=== PATIENT | male | born 1985 | race Hispanic/Latino ===

== ENCOUNTER 2017-03-24 12:02 | Inpatient (IN) | payer OTHER ==
[~2017-03-24] VITALS: Ht 185.4 cm; Wt 75.0 kg
[2017-03-24] MEDS ORDERED: FLUC150T PO (12:10)
[2017-03-24 13:06] LABS: MEAN CORPUSCULAR HEMOGLOBIN 29.9 pg (27.0-33.0); MEAN CORPUSCULAR HGB CONC 34.7 g/dl (32.0-36.5); MEAN CORPUSCULAR VOLUME 86.2 fl (80.0-96.0); RED CELL DISTRIBUTION WIDTH 11.9 % (11.5-14.5)
[2017-03-24 14:31] LABS: ALBUMIN 4.1 GM/DL (3.2-5.2); ALBUMIN/GLOBULIN RATIO 1.28 (1.00-1.93); ALKALINE PHOSPHATASE 99 U/L (45-117); ALT/SGPT 23 U/L (12-78); ANION GAP 10 MEQ/L (8-16); AST/SGOT 12 U/L (15-37); BILIRUBIN,DIRECT 0.2 MG/DL (0.0-0.2); BILIRUBIN,TOTAL 0.7 MG/DL (0.2-1.0); BLOOD UREA NITROGEN 11 MG/DL (7-18); CALCIUM LEVEL 9.3 MG/DL (8.5-10.1); CARBON DIOXIDE LEVEL 29 MEQ/L (21-32); CHLORIDE LEVEL 102 MEQ/L (98-107); CREATININE FOR GFR 0.95 MG/DL (0.70-1.30); GLOMERULAR FILTRATION RATE > 60.0 (>60); GLUCOSE, FASTING 86 MG/DL (70-105); POTASSIUM SERUM 4.3 MEQ/L (3.5-5.1); SODIUM LEVEL 141 MEQ/L (136-145); TOTAL PROTEIN 7.3 GM/DL (6.4-8.2)
[2017-03-24 14:55] LABS: METHADONE URINE NEGATIVE (NEGATIVE)
[2017-03-24] MEDS ORDERED: ACETAMINOPHEN TAB 650MG DOSE (2X325MG) PO PRN (15:45)
[2017-03-24] MEDS ORDERED: MAALOX 30 ML SUSP *UDC PO PRN (15:45)
[2017-03-24] MEDS ORDERED: traZODone 50 MG TAB PO PRN (15:45)
[2017-03-24] MEDS ORDERED: MOM 30ML SUSPENSION UDC PO PRN (15:45)
[2017-03-24 16:54] VITALS: BP 124/85
[2017-03-25 06:58] VITALS: BP 112/62
--- NOTE | 2017-03-25 11:24 | HPE ---
DATE OF ADMISSION: 03/24/2017 HISTORY OF THE PRESENT ILLNESS: Please refer to psychiatric history and evaluation for further details on this admission. This examination and history is intended for medical issues history, which may need treatment, follow-up or consult on this 31-year-old male. ALLERGIES: No known allergies. PRIMARY CARE PROVIDER: Leandro Taylor. 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 ETOH rarely. Smokes none. Recreational drug use none. PAST MEDICAL HISTORY: Anxiety. Onychomycosis left toenail, left 5th toe. PAST SURGICAL HISTORY: Hernia repair at age 6. Removal of cyst from back. HOME MEDICATIONS: - fluconazole 300 mg by mouth q. Week. FAMILY HISTORY: Noncontributory. LABORATORY STUDIES: CBC normal. Lytes normal. BUN and creatinine 11 and 0.95. Toxicology screen was negative. REVIEW OF SYSTEMS: 10 systems review was unremarkable other than the fluconazole for the onychomycosis. PHYSICAL EXAMINATION: 31-year-old male cooperative male in no acute distress. Height 73 inches. Weight 75 kg. Body mass index (BMI) 21.8. Blood pressure 124/85. Pulse 74. Respirations 18. Temperature 98.1. Patient is alert and oriented times three. Pupils equal and reactive to light. Extraocular muscles intact. Cornea and sclerae are clear. Conjunctivae are normal. No facial asymmetry. Pharynx, tongue and gums are pink and moist. Tongue is midline. Neck is supple without lymphadenopathy. No thyromegaly. No goiter. Carotids are 2+ without bruit. Chest clear to auscultation without wheeze or retraction. Heart is regular. Abdomen is benign. Bowel sounds are positive. /rectal not done. Extremities show equal strength. Full range of motion. No cyanosis, clubbing or edema. Peripheral pulses equal and palpable bilaterally. Skin is warm and dry. IMPRESSION/PLAN: 1. Psychiatric plan per psychiatry. 2. Continue fluconazole 300 mg by mouth q. week. 3. No acute medial issues.
--- NOTE | 2017-03-25 16:31 | MHHPE ---
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 In the emergency room the patient was really not very forthcoming with information, and he did again admit that he was wishing harm against these coworkers. Today the patient is much more forthcoming. He apparently is being investigated at this point because, according to the patient, he called one of his coworkers a degrading name. He states that he did that because this person had been going into his office and taking his things, in particular a paper. He states that he did not understand, that they are just focusing on a degrading word that he used against this worker , but they are completely ignoring the fact that this person was taking his papers and other things. He states that recently he had started to do some outpatient therapy at [facility] to help him with problems relating to his coworkers. When I asked him if he has problems with that, he stated "There is no middle ground for me." He states "I am either upbeat and everything is okay," or if things are not okay, he states that he gets depressed, and he admits that sometimes he will have some suicidal thoughts, but he states never with any intent of harming himself. The patient also stated "I feel like people are against me when I have no control over a situation." He says this is how he was feeling over the fact that this coworker was stealing his papers, stating "I don't understand why they don't have their own papers." The patient also clarified that he never had any intentions of ever harming anyone or any of the coworkers; however, he stated "I do feel made, and I do wish something bad would happen to them." He stated "Even if it was to his dog, then I would think that they deserved it;" however, he continues to state that he would never harm anybody himself. I asked him some more about the states when he gets depressed, as he noted above , when he says things are not going well for him. I asked him how long would he stay depressed for, and his answer to me was "Well, I don't know because I have never logged that information." The patient does admit that "I work a lot, and I'm fine with it, because I enjoy finding an issue and then working on it." He says he works very long hours, up to 14 hours, and also on weekends. He does not seem that he has much a social life at all, however, or any supportive individuals in his life. I did not elicit any depressive symptomatology, like trouble with sleep or his appetite or any problems with insomnia. Currently the patient is on no medications. Of note, when the patient was seen at the [facility], he was insisting that he wanted to be seen for a very long time, because only then he would have time to explain his situation. The patient is wondering of there is some testing that we can do in the hospital. He states that he had had just a few sessions with a counseling at [facility] when he was going there recently, but apparently the counselor went out on maternity leave, and he wanted to wait until that counselor returned so that he could continue the evaluation that she had started. The offered him another counselor, but he insisted that he wanted to continue with this person who started the evaluation. PAST PSYCHIATRIC HISTORY: The patient does have a history of being admitted to a psychiatric unit twice, once in [facility] and once in [place]. He tells me that he is not sure why he was admitted those times. He states that there was one time where he was thinking about cutting his wrists in 2004. He says that in 2010 there was an episode where he got depressed, and he had suicidal thoughts, but he states that it is not ever with any actual intent, that he has never actually hurt himself before. FAMILY HISTORY: This is negative for any psychiatric illness in the family. PAST MEDICAL HISTORY: There are no acute medical problems. SUBSTANCE ABUSE HISTORY: There is no history of any problems with alcohol or any drugs. ABUSE HISTORY: He denies any history of any physical or sexual abuse in his past. MENTAL STATUS EXAMINATION: This patient is alert and oriented times three. Eye contact is really good. He is verbally spontaneous. There is no formal thought disorder noted. He states that his mood is fine. Today affect is restricted but appropriate to his mood. He is not suicidal. He continues to clarify that he is homicidal, but he does have thoughts of wishing that something bad would happen to his coworkers. I really do not think that this patient is psychotic. Concentration is fair. Memory is intact. Insight and judgment are poor. DIAGNOSIS: Adjustment disorder with depressed mood Rule out obsessive-compulsive personality disorder. TREATMENT PLAN: At this point, we will continue to evaluate the patient for continued denial of homicidal ideations toward his coworkers. I suspect that we might dealing more with obsessive-compulsive personality disorder in this patient. He seems to be very rigid in his way of thinking and his logic. It seems to be that for this patient work is the major focus in his life. He has what appears to be no social life, but he states that he likes it that way. We will continue to evaluate this patient for any indications for medications, but at this point there does not seem to be any. REVIEW OF SYSTEMS: VITAL SIGNS: Blood pressure is 112/62, pulse is 56, respirations are 16. APPEARANCE: The patient appears to be stated age. NEUROMUSCULAR SYSTEM: The patient's gait is normal. There were no involuntary movements noted. All other systems were reviewed and found to be negative. MTDD
[2017-03-25 18:00] VITALS: BP 120/68
[2017-03-26 07:05] VITALS: BP 109/67
[2017-03-26 18:00] VITALS: BP 105/66
--- NOTE | 2017-03-26 19:11 | MHIPN ---
DATE: 03/26/2017 The patient today states that he is doing okay at this point, but he says whenever he starts thinking about the incidents that happened at work with his coworker, he gets angry again and he continues to wish that some harm would come upon those individuals. He continues to clarify, however, that he has no intentions of hurting anybody himself. MENTAL STATUS EXAMINATION: This patient is alert and oriented times three. Eye contact is fair. Psychomotor activity is normal. There is no formal thought disorder noted. He says his mood is okay. His affect is constricted, but appropriate. He is not psychotic, suicidal, or homicidal. Concentration fair. Memory intact. Insight and judgment is fair. DIAGNOSES: Adjustment disorder with depressed mood. Obsessive compulsive personality disorder. Rule out autism spectrum (Asperger's). TREATMENT PLAN: We will continue to monitor the patient to make sure that the patient is not having any homicidal ideations.
[2017-03-27 06:42] VITALS: BP 114/70
[2017-03-27 18:00] VITALS: BP 113/60
--- NOTE | 2017-03-27 19:05 | IPN ---
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 It is described the patient was not forthcoming at the emergency room, but later was more cooperative and information could be gathered. The patient reported being depressed and suicidal intermittently. The patient was talking about "people against me". "I do not have middle ground". The patient was also talking about stress of working long hours. This is his first psychiatric admission and has not psychiatric diagnosis. It is reported in the chart that patient was thinking about cutting his wrist in 2004, but he recovered without treatment. MEDICATIONS: - trazodone 50 mg by mouth at bedtime as needed for insomnia. During the interview today, the patient reports feeling better. The patient denies any feelings of depression, denies suicidal or homicidal ideation. The patient reports being highly distressed because "I lost my job at the ". "They are only seeing and hearing other people but they do not want to listen to my side of the story. The patient was asking to get into an inpatient program where he could find out what is wrong with him and go through extensive psychological testing. We discussed the treatment plan. MENTAL STATUS EXAM: The patient dressed in [facility]. The patient is clean and well-groomed. The patient's eye contact is fair. Speech is monotone. Mood is slightly anxious. Affect is somewhat restricted. There is no evidence of delusions or hallucinations. Memory is fair. Patient is fully oriented. Associations are intact. Thinking is logical. Thought content is appropriate. The patient denies suicidal or homicidal ideation. Insight and judgment is fair. ASSESSMENT: Adjustment disorder with depressed and anxious mood. PLAN: 1. Trazodone 50 mg by mouth at bedtime as needed for insomnia. 2. Continue medication management, individual and group therapy.
[2017-03-28 06:49] VITALS: BP 116/62
--- NOTE | 2017-03-29 15:47 | MHDS ---
DATE OF ADMISSION: 03/24/2017 DATE OF DISCHARGE: 03/28/2017 HISTORY OF PRESENT ILLNESS: The following information is according to the initial evaluation of Dr. Yin, her progress note, and my own progress note. On admission, Dr. 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 He was referred because the patient had stated that he was "wishing harm" against some of his coworkers. In the emergency room, patient was really not very forthcoming with information and he did again admit that he was wishing harm against his coworkers. Today, the patient is much more forthcoming. He apparently is being investigated at this point because, according to the patient, he called one of his coworkers a degrading name. He states that he did that because this person had been going into his office and taking his things, in particular a paper. He states that he did not understand, that they are just focusing on a degrading word that he used against this coworker, but they are completely ignoring the fact that this person was taking his papers and other things. He stated that recently he had started to do some outpatient therapy at [facility] to help him with problems relating to his coworkers. When I asked him if he has problems with that, he stated "there is no middle ground for me." He states "I am either upbeat and everything is okay," or if things are not okay, he stated that he gets depressed and he admits that sometimes he will have some suicidal thoughts, but then he states never with any intent to harm himself. The patient also stated "I feel like people are against me when I have no control over a situation." He says this is how he was feeling over the fact that this coworker was stealing his paper, stating "I don't understand why they don't have their own papers." The patient also clarified that he never had any intentions of ever harming anyone or any of the coworkers. However, he stated "I do feel made and I do wish something bad would happen to them." He stated "even if I was to his dog, then I would think that they deserved it." However, he continues to state that he could never harm anybody himself. I asked him some more about the states when he gets depressed, as he noted above when he says things are not going well for him. I asked him how long could he stay he depressed and his answer was "well, I don't know because I have never logged that information." The patient does admit that "I work a lot and I'm fine with it because I enjoy finding an issue and then working on it." He says he works very long hours, up to 14, and also on weekends. He does not seem that he has much social life at all however or any supportive individuals in his life. I did not elicit any depressive symptomatology like trouble with sleep, with his appetite, or any problem with insomnia. Currently, the patient is on no medications. Of note, when the patient was seen at the [facility], he was insisting that he wanted to be seen for a very long time because only then he could have time to explain his situation. Patient is wondering if there is some testing that he can do in the hospital. He states that he had just a few sessions with a counselor at [facility] when he was going there recently. Apparently, the counselor went out on maternity leave and he wanted to wait until that counselor returned so that he could continue the evaluation that she had started. They offered him another counselor, but he insisted he wanted to continue with this person who started the evaluation. LABORATORY DATA AT ADMISSION: His CBC was within normal limits. CMP unremarkable. TSH within normal limits. Urine drug screen (UDS) was negative. Blood alcohol level was negative. HOSPITAL COURSE: After the first evaluation, Dr. Yin admitted the patient for observation. No psychotropic medications were started except trazodone 50 mg by mouth nightly as needed for insomnia that patient did not take until 03/27/2017. I saw the patient for the first time on 03/27/2017. At that point, he told me that he was not feeling depressed, he was not feeling suicidal or homicidal. He explained his work situation again. He expressed his frustration because of the complexity of his type of work and the fact that he has three different bosses. He also expressed his frustration that he is probably going to lose this job that he likes very much and does not understand the situation well. He stated that they think that he is creating an angry work environment, which patient does not believe is true. He stated that he has been in the [employer] for 17 years coping well and finds this situation unfair. I could not see any psychotic symptoms, no auditory or visual hallucinations or delusions. When asked about his thoughts about harming coworkers, he stated that these feelings were there when he was angry, but he does not feel angry anymore and that he is incapable of hurting somebody. He stated that he wanted to be extensively tested in a special inpatient unit to be able to find out the reason for some of his psychological and behavioral responses. When I told him that we usually do not take people out of the community to be tested in an inpatient unit and we usually do this in an outpatient setting in the context of having a therapist that gets to know well the patient and knows what kind of testing the patient needs, he understood, although he continued to be frustrated because of his situation. We agreed at that time that the patient was going to be discharged after a chain of command meeting and he was going to be followed at [facility]. On 03/28/2017, the patient is discharged in a stable condition. He tried trazodone 50 mg at bedtime since he was complaining of being unable to sleep well, but he did not like the effect the trazodone caused and he preferred not to continue taking this medication and to wait to go to [facility] and to follow their recommendations there. MENTAL STATUS EXAMINATION AT DISCHARGE: Patient was dressed in [facility]. Patient is cooperative. His speech was clear, coherent, with normal rate and was spontaneous. Patient had good eye contact. Mood was euthymic. Affect was somewhat restricted. Patient was oriented to time, place, person, and situation. Maintains attention and concentration correctly. Instant recall, recent, and remote memory were intact. Thought processes were coherent, logical, and goal-directed. Patient does not have auditory or visual hallucinations. Patient does not have paranoid, persecutory, somatic, grandiose, or religions delusions. Patient denies suicidal or homicidal ideation. Judgment and insight were fair. MEDICATIONS AT DISCHARGE: None. DISCHARGE DIAGNOSIS: Adjustment disorder with depressed and anxious mood. CONDITION AT DISCHARGE: Stable. No suicidal or homicidal ideation. No auditory or visual hallucinations. No delusions. INSTRUCTIONS TO THE PATIENT: Patient will go to [facility] for a safety check and followup recommendations.
[2017-03-31] MEDS ORDERED: FLUCONAZOLE 100 MG TAB PO SCH (09:00)
== END 2017-03-28 12:00 | disposition home or self-care (01) | DRG 882 ==
LOC: M ED 12:02 → M ED INP 15:33 → M PSY 16:46
PROVIDERS: ADMIT Psychiatry & Neurology Psychiatry; ATTEND Psychiatry & Neurology Psychiatry
DX: F43.23 Adjustment disorder with mixed anxiety and depressed mood (principal)

== ENCOUNTER 2017-03-28 14:26 | Emergency (ER) | payer OTHER ==
[~2017-03-28] VITALS: Ht 185.4 cm; Wt 68.1 kg
[~2017-03-28 14:26] MED LIST: FLUC150T PO
[2017-03-28 16:20] VITALS: BP 127/90
== END 2017-03-28 16:33 | disposition home or self-care (01) ==
LOC: M ED 14:26
DX: F32.9 Major depressive disorder, single episode, unspecified (principal); Z79.899 Other long term (current) drug therapy

== ENCOUNTER → 2019-01-10 | Outpatient (CLI) | payer OTHER ==
[~2019-01-10] MED LIST changes: +ISOVUE-370 76% 100ML VIAL (Q9967) As Ordered ONE
--- NOTE | 2019-01-10 10:24 | REP ---
Soft-tissue neck CT study with IV contrast: History: Pain in the throat. Left-sided neck tenderness to palpation and pain with running. CT contrast dose: 75 ml of intravenous Isovue [address] findings: Digital preliminary rn radiology view is unremarkable. Parotid and submandibular glands are normal and symmetric. There are scattered anterior cervical lymph nodes which are normal in size. No adenopathy is seen. Thyroid lobes are homogeneous in texture and normal in size. No glottic or subglottic airway lesion is seen. The upper esophagus is unremarkable. No laryngeal abnormality is seen. Hyoid bone is intact. Floor of mouth structures are unremarkable. No vascular lesion is observed. No bony destructive lesion is seen. Cervical disc spaces are preserved throughout the cervical spine. The lung apices are clear. There is a mucous retention cyst in the superior wall of the right maxillary sinus. This cyst measures 12 mm in greatest diameter. There is mild mucosal thickening in the left maxillary sinus. The visualized paranasal sinuses are otherwise clear. Impression: Mild mucosal changes in the maxillary sinuses. Otherwise normal soft tissue neck CT study. Electronically Signed by Romario Taylor MD 01/10/2019 02:17 P
== END ==
LOC: M RAD 07:48
PROVIDERS: ATTEND Family Medicine
DX: R05 Cough (principal)